=== PATIENT | male | born 1985 | race Caucasian/White ===

== ENCOUNTER 2025-06-03 10:33 | Emergency (ER) | payer MEDICAID, OTHER, SELFPAY ==
[~2025-06-03] VITALS: Ht 177.8 cm; Wt 86.4 kg
[~2025-06-03 10:33] MED LIST: NOCURR
[2025-06-03 10:39] VITALS: BP 126/85; PULSE 104; RESP 20; TEMP 98.4; O2SAT 99
[2025-06-03] MEDS ORDERED: OxyCODONE HCL 20 MG ER TABLET PO ONE (12:45)
[2025-06-03] MEDS: OxyCODONE HCL 10 MG ER TABLET PO ONE (13:22)
[2025-06-03] MEDS ORDERED: IBUP-1492 PO (14:36)
[2025-06-03] MEDS ORDERED: ACET-2247 PO (14:36)
[2025-06-03] MEDS ORDERED: OXYC5 PO (15:06)
== END 2025-06-03 15:22 | disposition home or self-care (01) ==
LOC: EMS 10:33
DX: S42.024A Nondisplaced fracture of shaft of right clavicle, initial encounter for closed fracture (principal); S62.111A Displaced fracture of triquetrum [cuneiform] bone, right wrist, initial encounter for closed fracture; W19.XXXA Unspecified fall, initial encounter; Y93.89 Activity, other specified; Y92.89 Other specified places as the place of occurrence of the external cause; Y99.8 Other external cause status
CPT/HCPCS: 99283